=== PATIENT | male | born 1980 | race Caucasian/White ===

== ENCOUNTER 2016-08-11 15:16 | Emergency (ER) | payer MEDICAID ==
[~2016-08-11] VITALS: Ht 167.6 cm; Wt 76.4 kg
[2016-08-11 15:53] VITALS: BP 144/97
== END 2016-08-11 19:07 | disposition home or self-care (01) ==
LOC: ED 15:16
DX: H81.02 Meniere's disease, left ear (principal); H81.12 Benign paroxysmal vertigo, left ear; R11.2 Nausea with vomiting, unspecified
CPT/HCPCS: J2930

== ENCOUNTER 2017-08-22 20:58 | Emergency (ER) | payer MEDICAID ==
[~2017-08-22] VITALS: Ht 167.6 cm; Wt 78.0 kg
[2017-08-22 22:04] VITALS: BP 143/81; Ht 167.6 cm; Wt 78.0 kg
== END 2017-08-23 00:45 | disposition home or self-care (01) ==
LOC: ED 20:58
DX: H10.9 Unspecified conjunctivitis (principal); J06.9 Acute upper respiratory infection, unspecified; J02.9 Acute pharyngitis, unspecified

== ENCOUNTER 2018-03-17 20:59 | Emergency (ER) | payer MEDICAID ==
[2018-03-17 21:03] VITALS: BP 151/91; Ht 165.1 cm
== END 2018-03-18 00:19 | disposition home or self-care (01) ==
LOC: ED 20:59
DX: G62.89 Other specified polyneuropathies (principal)